=== PATIENT | male | born 1930 | race Two or more races ===

== ENCOUNTER 2018-07-25 21:53 | Emergency (ER) | payer MEDICARE ==
[~2018-07-25] VITALS: Ht 172.7 cm; Wt 72.6 kg
[~2018-07-25 21:53] MED LIST: ALPR0.5T7 PO; ASPI81CH43 PO; CARV6.2551; CLOP75TA41; FAMO40TA49; HYDR500T13; LISI2.5T47; MOME200A; NYSTCRE; POLYETHYLENE GLYCOL 3350 POWD; PROMETHAZINE-DM SYRUP; SIMV-13; TAMS0.4C36 PO; TEMA30CA; TIOTCAP; TRAM50TA2 PO
[2018-07-25 23:12] LABS: Basophils # (auto) 0.2 uL; Basophils % (auto) 2.4 % (0.0-2.0); Eosinophils # (auto) 0.4 uL; Eosinophils % (auto) 5.8 % (0.0-7.0); Hematocrit 42.5 % (41.0-53.0); Hemoglobin 14.4 g/dL (13.5-17.5); Lymphocytes # (auto) 1.5 uL; Lymphocytes % (auto) 19.7 % (10.0-50.0); Mean Corpuscular Hemoglobin 30.1 pg (28.0-32.0); Mean Corpuscular Hgb Conc. 33.9 g/dL (32.0-36.0); Mean Corpuscular Volume 88.9 fL (80.0-100.0); Monocytes # (auto) 0.6 uL; Monocytes % (auto) 8.4 % (0.0-12.0); Neutrophils # (auto) 4.8 uL; Neutrophils % (auto) 63.7 % (37.0-80.0); Nucleated Red Blood Cells % 0.1 %; Platelet Count (auto) 167 10^3/uL (140-450); Red Blood Cells 4.78 10^6/uL (4.5-5.90); Red Cell Distribution Width 14.1 % (11.8-14.3); White Blood Cell 7.5 10^3/uL (4.4-10.8)
[2018-07-25 23:25] LABS: INR 1.07 (0.9-1.15); Partial Thromboplastin Time 32.4 sec (23.78-33.04); Prothrombin Time 11.4 sec (9.27-12.13)
[2018-07-25 23:34] LABS: BUN/Creatinine Ratio 19.7; Calcium 8.6 mg/dL (8.5-10.1)
[2018-07-25 23:42] LABS: Bilirubin, Total 0.4 mg/dL (0.2-1.0); Total Protein 6.7 g/dL (6.4-8.2)
[2018-07-26 00:55] VITALS: BP 122/76
== END 2018-07-26 01:31 | disposition home or self-care (01) ==
LOC: ER 22:02
DX: R04.0 Epistaxis (principal); J32.2 Chronic ethmoidal sinusitis; J32.1 Chronic frontal sinusitis; I25.10 Atherosclerotic heart disease of native coronary artery without angina pectoris; I11.0 Hypertensive heart disease with heart failure; I50.9 Heart failure, unspecified; K21.9 Gastro-esophageal reflux disease without esophagitis; E78.5 Hyperlipidemia, unspecified; I25.2 Old myocardial infarction; F17.210 Nicotine dependence, cigarettes, uncomplicated; Z79.82 Long term (current) use of aspirin; Z79.899 Other long term (current) drug therapy; Z98.61 Coronary angioplasty status
CPT/HCPCS: 36415; 70450; 80053; 85025; 85610; 85730; 86850; 86900; 86901

== ENCOUNTER 2021-11-30 14:33 | Inpatient (IN) | payer MEDICARE, OTHER ==
[~2021-11-30] VITALS: Ht 172.7 cm; Wt 65.4 kg
[2021-11-30] VITALS (7 sets, daily range): BP systolic 125–159; BP diastolic 61–96
[~2021-11-30 14:33] MED LIST changes: -CLOP75TA41; +CLOP75TA70; -FAMO40TA49; +FAMO40TA7
[2021-11-30] MEDS ORDERED: FUROSEMIDE 40 MG/4 ML VIAL IV ONE (15:45)
[2021-11-30] MEDS ORDERED: methylPREDNISolone SOD SUCC 125 MG/2 ML VL IV ONE (15:45)
[2021-11-30 16:49] LABS: Basophils # (auto) 0 10 ^3/uL (0-0.2); Hematocrit 18.8 % (41.0-53.0); Lymphocytes # (auto) 0.7 10 ^3/uL (0.4-5.4); Monocytes # (auto) 0.7 10 ^3/uL (0-1.3); White Blood Cell 6.5 10^3/uL (4.4-10.8)
[2021-11-30 16:50] LABS: Basophils % (auto) 0.7 % (0.0-2.0); Eosinophils # (auto) 0.1 10 ^3/uL (0-0.8); Eosinophils % (auto) 0.8 % (0.0-7.0); Lymphocytes % (auto) 10.6 % (10.0-50.0); Mean Corpuscular Hemoglobin 17.8 pg (28.0-32.0); Mean Corpuscular Hgb Conc. 28.1 g/dL (32.0-36.0); Mean Corpuscular Volume 63.1 fL (80.0-100.0); Monocytes % (auto) 11.2 % (0.0-12.0); Neutrophils % (auto) 76.7 % (37.0-80.0); Nucleated Red Blood Cells % 0.5 %; Red Blood Cells 2.98 10^6/uL (4.5-5.90)
[2021-11-30 16:54] LABS: Red Cell Distribution Width 21.1 % (11.8-14.3)
[2021-11-30 17:03] LABS: Hemoglobin 5.3 g/dL (13.5-17.5)
[2021-11-30 17:10] LABS: Albumin 2.8 g/dL (3.4-5.0); BUN/Creatinine Ratio 29.2; Calcium 8.6 mg/dL (8.5-10.1); Potassium 4.3 mmol/L (3.5-5.1)
[2021-11-30 17:14] LABS: Bilirubin, Total 0.5 mg/dL (0.2-1.0); Total Protein 6.2 g/dL (6.4-8.2)
[2021-11-30 17:38] LABS: CRP High Sensitivity 2.11 mg/dL (< 0.3)
[2021-11-30 17:45] LABS: Urine Bacteria NONE SEEN /hpf (None Seen); Urine Blood Negative /uL (Negative); Urine Hyaline Cast FEW /lpf (0 - 2); Urine Mucus FEW (None Seen); Urine Specific Gravity 1.013 (1.001-1.035); Urine WBC 1 /hpf (0 - 3)
[2021-12-01] VITALS (11 sets, daily range): BP systolic 119–151; BP diastolic 55–76
[2021-12-01] MEDS ORDERED: ACETAMINOPHEN 325 MG TAB PO PRN (00:30)
[2021-12-01] MEDS ORDERED: ONDANSETRON HCL 4 MG/2 ML VIAL IV PRN (00:30)
[2021-12-01] MEDS ORDERED: MORPHINE SULFATE INJECTION 2 MG/ML SYRG IV PRN (00:30)
[2021-12-01] MEDS ORDERED: NITROGLYCERIN 0.4 MG SL TAB SL PRN (00:30)
[2021-12-01] MEDS ORDERED: FUROSEMIDE 20 MG/2 ML VIAL IV SCH (06:00)
[2021-12-01] MEDS: LISINOPRIL 5 MG TAB PO SCH (09:48)
[2021-12-01] MEDS: CARVEDILOL 3.125 MG TAB PO SCH ×2 (09:49→12:14)
[2021-12-01] MEDS ORDERED: CLOPIDOGREL BISULFATE 75 MG TAB PO SCH (10:00)
[2021-12-01] MEDS ORDERED: FUROSEMIDE 40 MG TAB PO SCH (10:00)
[2021-12-01 10:08] LABS: Basophils # (auto) 0 10 ^3/uL (0-0.2); Eosinophils # (auto) 0 10 ^3/uL (0-0.8); Hemoglobin 7.4 g/dL (13.5-17.5); Neutrophils # (auto) 4.7 10 ^3/uL (1.6-8.6)
[2021-12-01 10:11] LABS: Basophils % (auto) 0.6 % (0.0-2.0); Hematocrit 24.8 % (41.0-53.0); Lymphocytes # (auto) 0.7 10 ^3/uL (0.4-5.4); Lymphocytes % (auto) 10.8 % (10.0-50.0); Mean Corpuscular Hemoglobin 19.7 pg (28.0-32.0); Mean Corpuscular Hgb Conc. 29.9 g/dL (32.0-36.0); Mean Corpuscular Volume 65.9 fL (80.0-100.0); Monocytes # (auto) 1.1 10 ^3/uL (0-1.3); Monocytes % (auto) 16.8 % (0.0-12.0); Neutrophils % (auto) 71.8 % (37.0-80.0); Nucleated Red Blood Cells % 0.8 %; Red Blood Cells 3.77 10^6/uL (4.5-5.90); White Blood Cell 6.6 10^3/uL (4.4-10.8)
[2021-12-01 10:12] LABS: Red Cell Distribution Width 24.5 % (11.8-14.3)
[2021-12-01 10:22] LABS: Calcium 8.4 mg/dL (8.5-10.1)
[2021-12-01 10:25] LABS: BUN/Creatinine Ratio 26.9; Bilirubin, Total 0.7 mg/dL (0.2-1.0); Total Protein 6.4 g/dL (6.4-8.2)
[2021-12-01 11:28] LABS: % Iron Saturation 4.1 % (20-55)
[2021-12-01] MEDS ORDERED: methylPREDNISolone SOD SUCC 40 MG/ML VL IV ONE (12:00)
[2021-12-01] MEDS ORDERED: AZITHROMYCIN 500MG/ 250ML 250 ML IV ONE (12:00)
[2021-12-01] MEDS ORDERED: PANTOPRAZOLE 40 MG/10 ML VIAL INJ IV ONE (12:00)
[2021-12-01] MEDS ORDERED: RIVA10TA PO (17:34)
[2021-12-01] MEDS ORDERED: TIOTCAP IN (17:35)
[2021-12-01] MEDS: FUROSEMIDE 20 MG/2 ML VIAL IV SCH (17:51)
[2021-12-01] MEDS ORDERED: RIVAROXABAN 15 MG TAB PO SCH (18:00)
[2021-12-01] MEDS: LACTULOSE 20Gm/30ML SOLN PO PRN (19:00)
[2021-12-01] MEDS: methylPREDNISolone SOD SUCC 40 MG/ML VL IV SCH (21:58)
[2021-12-01] MEDS: PANTOPRAZOLE 40 MG/10 ML VIAL INJ IV SCH (21:58)
[2021-12-01] MEDS: ATORVASTATIN 20 MG TAB PO SCH (21:59)
[2021-12-01] MEDS: AMIODARONE HCL 200 MG TAB PO SCH (22:00)
[2021-12-01] MEDS: TEMAZEPAM 15 MG CAP PO PRN (23:40)
[2021-12-02 04:59] LABS: Basophils # (auto) 0 10 ^3/uL (0-0.2); Basophils % (auto) 0.1 % (0.0-2.0); Eosinophils # (auto) 0 10 ^3/uL (0-0.8); Hemoglobin 7.7 g/dL (13.5-17.5); Neutrophils % (auto) 88.8 % (37.0-80.0)
[2021-12-02 05:01] LABS: Hematocrit 25.6 % (41.0-53.0); Lymphocytes # (auto) 0.4 10 ^3/uL (0.4-5.4); Lymphocytes % (auto) 6.5 % (10.0-50.0); Mean Corpuscular Hemoglobin 19.7 pg (28.0-32.0); Mean Corpuscular Hgb Conc. 29.9 g/dL (32.0-36.0); Mean Corpuscular Volume 65.9 fL (80.0-100.0); Monocytes # (auto) 0.3 10 ^3/uL (0-1.3); Monocytes % (auto) 4.6 % (0.0-12.0); Red Blood Cells 3.89 10^6/uL (4.5-5.90); White Blood Cell 6.8 10^3/uL (4.4-10.8)
[2021-12-02 05:16] LABS: Red Cell Distribution Width 24.3 % (11.8-14.3)
[2021-12-02 05:19] LABS: Albumin 2.9 g/dL (3.4-5.0); BUN/Creatinine Ratio 39.3; Calcium 8.8 mg/dL (8.5-10.1); Potassium 4.7 mmol/L (3.5-5.1)
[2021-12-02 05:22] LABS: Bilirubin, Total 0.5 mg/dL (0.2-1.0); Total Protein 6.2 g/dL (6.4-8.2)
[2021-12-02] MEDS: FUROSEMIDE 20 MG/2 ML VIAL IV SCH ×3 (05:36→22:27)
[2021-12-02 09:54] VITALS: BP 124/65
[2021-12-02] MEDS: PANTOPRAZOLE 40 MG/10 ML VIAL INJ IV SCH ×2 (10:04→22:32)
[2021-12-02] MEDS: AZITHROMYCIN 500MG/ 250ML 250 ML IV SCH (10:05)
[2021-12-02] MEDS: methylPREDNISolone SOD SUCC 40 MG/ML VL IV SCH ×2 (10:05→22:25)
[2021-12-02] MEDS: LISINOPRIL 5 MG TAB PO SCH (10:06)
[2021-12-02] MEDS: AMIODARONE HCL 200 MG TAB PO SCH ×2 (10:07→22:28)
[2021-12-02] MEDS: CARVEDILOL 3.125 MG TAB PO SCH ×3 (10:08→23:19)
[2021-12-02] MEDS: ATORVASTATIN 20 MG TAB PO SCH (22:28)
[2021-12-02] MEDS: TEMAZEPAM 15 MG CAP PO PRN (23:19)
[2021-12-03] MEDS: FUROSEMIDE 20 MG/2 ML VIAL IV SCH ×2 (06:21→17:30)
[2021-12-03] MEDS: LACTULOSE 20Gm/30ML SOLN PO PRN (06:21)
[2021-12-03] MEDS: ALBUTEROL SULF 2.5 MG/0.5ML(0.5%) NEB SOLN NEB PRN ×2 (06:48→20:49)
[2021-12-03] MEDS: IPRATROPIUM BROM 0.5 MG/2.5ML INH SOL NEB PRN ×2 (06:48→20:49)
[2021-12-03] MEDS: ACETYLCYSTEINE 20%(200MG/ML) SOL 4ML NEB SCH ×2 (06:48→20:50)
[2021-12-03] MEDS ORDERED: guaiFENesin-DM 100/10mg/5ml SYR PO PRN (07:15)
[2021-12-03 09:00] VITALS: BP 112/40
[2021-12-03] MEDS: PANTOPRAZOLE 40 MG/10 ML VIAL INJ IV SCH ×2 (09:43→22:33)
[2021-12-03] MEDS: AMIODARONE HCL 200 MG TAB PO SCH ×2 (09:43→22:34)
[2021-12-03] MEDS: methylPREDNISolone SOD SUCC 40 MG/ML VL IV SCH ×2 (09:43→22:33)
[2021-12-03] MEDS: AZITHROMYCIN 500MG/ 250ML 250 ML IV SCH (09:44)
[2021-12-03] MEDS: NICOTINE 7MG/24HR TOPICAL PATCH TD SCH (09:45)
[2021-12-03] MEDS: LISINOPRIL 5 MG TAB PO SCH (10:00)
[2021-12-03] MEDS: CARVEDILOL 3.125 MG TAB PO SCH ×2 (10:00→22:39)
[2021-12-03 11:46] LABS: Basophils # (auto) 0 10 ^3/uL (0-0.2); Basophils % (auto) 0.1 % (0.0-2.0); Eosinophils # (auto) 0 10 ^3/uL (0-0.8); Hematocrit 24.7 % (41.0-53.0); Hemoglobin 7.3 g/dL (13.5-17.5); Lymphocytes # (auto) 0.6 10 ^3/uL (0.4-5.4); Lymphocytes % (auto) 8.7 % (10.0-50.0); Mean Corpuscular Hemoglobin 19.7 pg (28.0-32.0); Mean Corpuscular Hgb Conc. 29.4 g/dL (32.0-36.0); Monocytes # (auto) 0.3 10 ^3/uL (0-1.3); Monocytes % (auto) 4.6 % (0.0-12.0); Neutrophils # (auto) 6.4 10 ^3/uL (1.6-8.6); Neutrophils % (auto) 86.6 % (37.0-80.0); Nucleated Red Blood Cells % 0.9 %; White Blood Cell 7.4 10^3/uL (4.4-10.8)
[2021-12-03 11:49] LABS: Mean Corpuscular Volume 66.8 fL (80.0-100.0); Red Cell Distribution Width 24.7 % (11.8-14.3)
[2021-12-03 12:51] LABS: Calcium 8.7 mg/dL (8.5-10.1)
[2021-12-03 12:54] LABS: BUN/Creatinine Ratio 38.9
[2021-12-03 13:00] VITALS: BP 105/50
[2021-12-03] MEDS ORDERED: ACETYLCYSTEINE 20%(200MG/ML) SOL 4ML NEB SCH (14:00)
[2021-12-03 16:57] VITALS: BP 123/50
[2021-12-03 22:00] VITALS: BP 119/61
[2021-12-03] MEDS: ATORVASTATIN 20 MG TAB PO SCH (22:35)
[2021-12-04] MEDS: TEMAZEPAM 15 MG CAP PO PRN ×2 (00:29→22:34)
[2021-12-04 05:00] VITALS: BP 121/59
[2021-12-04] MEDS: FUROSEMIDE 20 MG/2 ML VIAL IV SCH ×2 (06:01→10:51)
[2021-12-04 07:26] LABS: Basophils # (auto) 0 10 ^3/uL (0-0.2); Basophils % (auto) 0.1 % (0.0-2.0); Eosinophils # (auto) 0 10 ^3/uL (0-0.8); Hemoglobin 7.7 g/dL (13.5-17.5); Lymphocytes # (auto) 0.5 10 ^3/uL (0.4-5.4); Lymphocytes % (auto) 5.1 % (10.0-50.0); Mean Corpuscular Hgb Conc. 29.6 g/dL (32.0-36.0); Monocytes # (auto) 0.5 10 ^3/uL (0-1.3); Monocytes % (auto) 4.9 % (0.0-12.0); Neutrophils # (auto) 9.1 10 ^3/uL (1.6-8.6); Neutrophils % (auto) 89.9 % (37.0-80.0); Nucleated Red Blood Cells % 0.4 %; White Blood Cell 10.1 10^3/uL (4.4-10.8)
[2021-12-04 07:30] LABS: Mean Corpuscular Volume 66.6 fL (80.0-100.0)
[2021-12-04 07:31] LABS: Mean Corpuscular Hemoglobin 19.7 pg (28.0-32.0); Red Cell Distribution Width 25.1 % (11.8-14.3)
[2021-12-04 07:42] LABS: BUN/Creatinine Ratio 41.7; Calcium 9.1 mg/dL (8.5-10.1); Magnesium 2.8 mg/dL (1.6-2.6); Potassium 4.7 mmol/L (3.5-5.1)
[2021-12-04] MEDS: NICOTINE 7MG/24HR TOPICAL PATCH TD SCH (10:00)
[2021-12-04] MEDS: PANTOPRAZOLE 40 MG/10 ML VIAL INJ IV SCH ×2 (10:00→22:31)
[2021-12-04] MEDS: AMIODARONE HCL 200 MG TAB PO SCH ×2 (10:00→22:32)
[2021-12-04] MEDS: methylPREDNISolone SOD SUCC 40 MG/ML VL IV SCH ×2 (10:00→22:31)
[2021-12-04] MEDS: LISINOPRIL 5 MG TAB PO SCH (10:00)
[2021-12-04] MEDS: AZITHROMYCIN 500MG/ 250ML 250 ML IV SCH (10:00)
[2021-12-04] MEDS: CARVEDILOL 3.125 MG TAB PO SCH ×2 (10:00→22:32)
[2021-12-04] MEDS: ALBUTEROL SULF 2.5 MG/0.5ML(0.5%) NEB SOLN NEB PRN ×2 (10:16→22:52)
[2021-12-04] MEDS: ACETYLCYSTEINE 20%(200MG/ML) SOL 4ML NEB SCH ×2 (10:16→22:52)
[2021-12-04 10:37] VITALS: BP_SYST 132; BP_DIAS 63; BP_DIAS 93
[2021-12-04 13:00] VITALS: BP 104/43
[2021-12-04 17:00] VITALS: BP 126/61
[2021-12-04] MEDS ORDERED: ATOR20TA50 PO (19:30)
[2021-12-04] MEDS ORDERED: PRED20TA2 PO (19:30)
[2021-12-04] MEDS ORDERED: FURO40TA4 PO (19:30)
[2021-12-04] MEDS ORDERED: LISI-275 PO (19:30)
[2021-12-04] MEDS ORDERED: CAR3125T PO (19:30)
[2021-12-04] MEDS ORDERED: FURO1TAB33 PO (19:30)
[2021-12-04 21:42] VITALS: BP 122/57
[2021-12-04] MEDS: ATORVASTATIN 20 MG TAB PO SCH (22:33)
[2021-12-04] MEDS: IPRATROPIUM BROM 0.5 MG/2.5ML INH SOL NEB PRN (22:52)
[2021-12-05 05:00] VITALS: BP 131/44
[2021-12-05] MEDS: FUROSEMIDE 20 MG/2 ML VIAL IV SCH (05:59)
[2021-12-05 06:48] LABS: Basophils # (auto) 0 10 ^3/uL (0-0.2); Eosinophils # (auto) 0 10 ^3/uL (0-0.8); Lymphocytes # (auto) 0.4 10 ^3/uL (0.4-5.4)
[2021-12-05 06:51] LABS: Hemoglobin 7.4 g/dL (13.5-17.5); Lymphocytes % (auto) 3.6 % (10.0-50.0); Mean Corpuscular Hemoglobin 19.6 pg (28.0-32.0); Mean Corpuscular Hgb Conc. 29.5 g/dL (32.0-36.0); Monocytes # (auto) 0.2 10 ^3/uL (0-1.3); Monocytes % (auto) 2.3 % (0.0-12.0); Neutrophils # (auto) 9.7 10 ^3/uL (1.6-8.6); Neutrophils % (auto) 94.1 % (37.0-80.0); Nucleated Red Blood Cells % 0.3 %; Red Blood Cells 3.76 10^6/uL (4.5-5.90); White Blood Cell 10.3 10^3/uL (4.4-10.8)
[2021-12-05 06:59] LABS: BUN/Creatinine Ratio 44.3; Calcium 9.3 mg/dL (8.5-10.1); Mean Corpuscular Volume 66.4 fL (80.0-100.0); Potassium 4.1 mmol/L (3.5-5.1); Red Cell Distribution Width 25.8 % (11.8-14.3)
[2021-12-05 09:00] VITALS: BP 126/45
[2021-12-05] MEDS: AZITHROMYCIN 500MG/ 250ML 250 ML IV SCH (10:00)
[2021-12-05] MEDS: CARVEDILOL 3.125 MG TAB PO SCH ×2 (10:00→22:00)
[2021-12-05] MEDS: AMIODARONE HCL 200 MG TAB PO SCH ×2 (10:00→21:40)
[2021-12-05] MEDS: NICOTINE 7MG/24HR TOPICAL PATCH TD SCH (10:00)
[2021-12-05] MEDS: ACETYLCYSTEINE 20%(200MG/ML) SOL 4ML NEB SCH (10:00)
[2021-12-05] MEDS: methylPREDNISolone SOD SUCC 40 MG/ML VL IV SCH ×2 (10:00→21:40)
[2021-12-05] MEDS: PANTOPRAZOLE 40 MG/10 ML VIAL INJ IV SCH ×2 (10:00→21:40)
[2021-12-05] MEDS: LISINOPRIL 5 MG TAB PO SCH (10:00)
[2021-12-05 17:00] VITALS: BP 146/84
[2021-12-05] MEDS: ALBUTEROL SULF 2.5 MG/0.5ML(0.5%) NEB SOLN NEB PRN (19:19)
[2021-12-05] MEDS: IPRATROPIUM BROM 0.5 MG/2.5ML INH SOL NEB PRN (19:19)
[2021-12-05] MEDS: TEMAZEPAM 15 MG CAP PO PRN (21:41)
[2021-12-05] MEDS: ATORVASTATIN 20 MG TAB PO SCH (21:41)
[2021-12-05 22:00] VITALS: BP 130/68
[2021-12-06 05:57] VITALS: BP 121/56
[2021-12-06] MEDS: ALBUTEROL SULF 2.5 MG/0.5ML(0.5%) NEB SOLN NEB PRN ×2 (06:11→21:06)
[2021-12-06] MEDS: ACETYLCYSTEINE 20%(200MG/ML) SOL 4ML NEB SCH ×2 (06:11→21:05)
[2021-12-06 09:48] VITALS: BP 111/46
[2021-12-06] MEDS: FUROSEMIDE 40 MG/4 ML VIAL IV SCH (09:57)
[2021-12-06] MEDS: PANTOPRAZOLE 40 MG/10 ML VIAL INJ IV SCH ×2 (09:57→22:03)
[2021-12-06] MEDS: AMIODARONE HCL 200 MG TAB PO SCH (09:58)
[2021-12-06] MEDS: NICOTINE 7MG/24HR TOPICAL PATCH TD SCH (09:58)
[2021-12-06] MEDS: AZITHROMYCIN 500MG/ 250ML 250 ML IV SCH (09:58)
[2021-12-06] MEDS: methylPREDNISolone SOD SUCC 40 MG/ML VL IV SCH ×2 (09:58→22:04)
[2021-12-06] MEDS: CARVEDILOL 3.125 MG TAB PO SCH ×2 (10:00→22:12)
[2021-12-06] MEDS: LISINOPRIL 5 MG TAB PO SCH (10:00)
[2021-12-06 12:00] VITALS: BP 118/61
[2021-12-06 13:30] VITALS: BP 118/61
[2021-12-06 17:00] VITALS: BP 120/60
[2021-12-06] MEDS: IPRATROPIUM BROM 0.5 MG/2.5ML INH SOL NEB PRN (21:06)
[2021-12-06 22:00] VITALS: BP 110/72
[2021-12-06] MEDS: ATORVASTATIN 20 MG TAB PO SCH (22:04)
[2021-12-06] MEDS: TEMAZEPAM 15 MG CAP PO PRN (22:05)
[2021-12-07 05:00] VITALS: BP 118/56
[2021-12-07] MEDS: ALBUTEROL SULF 2.5 MG/0.5ML(0.5%) NEB SOLN NEB PRN ×2 (05:59→23:12)
[2021-12-07] MEDS: IPRATROPIUM BROM 0.5 MG/2.5ML INH SOL NEB PRN (05:59)
[2021-12-07] MEDS: ACETYLCYSTEINE 20%(200MG/ML) SOL 4ML NEB SCH ×2 (06:00→23:11)
[2021-12-07 09:00] VITALS: BP 116/61
[2021-12-07] MEDS: methylPREDNISolone SOD SUCC 40 MG/ML VL IV SCH ×2 (09:43→21:15)
[2021-12-07] MEDS: PANTOPRAZOLE 40 MG/10 ML VIAL INJ IV SCH ×2 (09:43→21:15)
[2021-12-07] MEDS: AZITHROMYCIN 500MG/ 250ML 250 ML IV SCH (09:43)
[2021-12-07] MEDS: FUROSEMIDE 40 MG/4 ML VIAL IV SCH (09:43)
[2021-12-07] MEDS: AMIODARONE HCL 200 MG TAB PO SCH ×2 (09:43→22:27)
[2021-12-07] MEDS: CARVEDILOL 3.125 MG TAB PO SCH ×2 (09:44→22:28)
[2021-12-07] MEDS: NICOTINE 7MG/24HR TOPICAL PATCH TD SCH (09:44)
[2021-12-07] MEDS: LISINOPRIL 5 MG TAB PO SCH (10:00)
[2021-12-07 12:46] VITALS: BP 104/47
[2021-12-07 17:00] VITALS: BP 106/47
[2021-12-07] MEDS: ATORVASTATIN 20 MG TAB PO SCH (21:15)
[2021-12-07 22:00] VITALS: BP 117/64
[2021-12-08] MEDS: TEMAZEPAM 15 MG CAP PO PRN (00:46)
[2021-12-08 05:00] VITALS: BP 133/57
[2021-12-08 08:30] VITALS: BP 135/65
[2021-12-08] MEDS: ALBUTEROL SULF 2.5 MG/0.5ML(0.5%) NEB SOLN NEB PRN (10:14)
[2021-12-08] MEDS: IPRATROPIUM BROM 0.5 MG/2.5ML INH SOL NEB PRN (10:15)
[2021-12-08] MEDS: ACETYLCYSTEINE 20%(200MG/ML) SOL 4ML NEB SCH (10:15)
[2021-12-08] MEDS: PANTOPRAZOLE 40 MG/10 ML VIAL INJ IV SCH (10:45)
[2021-12-08] MEDS: AZITHROMYCIN 500MG/ 250ML 250 ML IV SCH (10:45)
[2021-12-08] MEDS: methylPREDNISolone SOD SUCC 40 MG/ML VL IV SCH (10:46)
[2021-12-08] MEDS: AMIODARONE HCL 200 MG TAB PO SCH (10:46)
[2021-12-08] MEDS: CARVEDILOL 3.125 MG TAB PO SCH (10:47)
[2021-12-08] MEDS: LISINOPRIL 5 MG TAB PO SCH (10:47)
[2021-12-08] MEDS: FUROSEMIDE 40 MG/4 ML VIAL IV SCH (10:48)
[2021-12-08] MEDS: NICOTINE 7MG/24HR TOPICAL PATCH TD SCH (10:48)
[2021-12-08 12:30] VITALS: BP 111/46
[2021-12-08 14:52] VITALS: BP 111/46
== END 2021-12-08 15:30 | disposition home health service (06) | DRG 291 ==
LOC: ER 14:33 → EDBD 12-01 00:17 → TELE 12-01 00:17 → TELE-WESTW 12-01 02:25
PROVIDERS: ADMIT Nurse Practitioner; ATTEND Internal Medicine
PROC: 30233N1 Transfusion of Nonautologous Red Blood Cells into Peripheral Vein, Percutaneous Approach (ICD-10-PCS; principal; 2021-11-30)
DX: I11.0 Hypertensive heart disease with heart failure (principal); J96.01 Acute respiratory failure with hypoxia; I50.23 Acute on chronic systolic (congestive) heart failure; J44.1 Chronic obstructive pulmonary disease with (acute) exacerbation; I48.20 Chronic atrial fibrillation, unspecified; J98.11 Atelectasis; E44.1 Mild protein-calorie malnutrition; I48.0 Paroxysmal atrial fibrillation; D64.9 Anemia, unspecified; I25.10 Atherosclerotic heart disease of native coronary artery without angina pectoris; E78.5 Hyperlipidemia, unspecified; K59.00 Constipation, unspecified; F17.210 Nicotine dependence, cigarettes, uncomplicated; N40.1 Benign prostatic hyperplasia with lower urinary tract symptoms; R33.8 Other retention of urine; Z20.822 Contact with and (suspected) exposure to COVID-19; K21.9 Gastro-esophageal reflux disease without esophagitis; Z79.01 Long term (current) use of anticoagulants; Z79.82 Long term (current) use of aspirin; Z79.899 Other long term (current) drug therapy; Z82.49 Family history of ischemic heart disease and other diseases of the circulatory system; I25.2 Old myocardial infarction; Z95.5 Presence of coronary angioplasty implant and graft; Z99.81 Dependence on supplemental oxygen; Z68.24 Body mass index [BMI] 24.0-24.9, adult
CPT/HCPCS: 36415; 71045; 76775; 80048; 80053; 81001; 82270; 82728; 83036; 83540; 83550; 83735; 83880; 84484; 85025; 85379; 86141; 86850; 86900; 86901; 86920; 87426; 93005; 93306; 94640; 96365; 96375; C9113; G0378